=== PATIENT | female | born 1935 | race African-American/Black ===

== ENCOUNTER 2019-04-26 01:39 | Observation (INO) ==
[2019-04-26] MEDS ORDERED: ONDANSETRON 4 MG/2 ML VIAL IV PRN (02:02)
[2019-04-26 02:42] LABS: Alanine Aminotransferase 22 U/L (13-56); Albumin 3.3 G/DL (3.4-5.0); Alkaline Phosphatase 136 U/L (45-117); Aspartate Amino Transferase 17 U/L (0-37); Basophils % 0.2 % (0.0-0.8); Bilirubin,Total < 0.39 MG/DL (0.2-1.0); Blood Urea Nitrogen 22 MG/DL (7-18); Eosinophils % 0.1 % (0.00-10.9); Glucose 183 MG/DL (74-106); Hemoglobin 8.8 GM/DL (12.0-16.0); Immature Granulocytes % 0.5 %; Immature Granulocytes Absolute 0.05 #; Lymphocytes # 1.7 10*3/uL (1.4-4.0); Lymphocytes % 14.9 % (21.3-54.2); Mean Corpuscular HGB Conc 31.4 GM/DL (32-36); Mean Corpuscular Volume 90.6 FL (87-102); Mean Platelet Volume 9.8 FL (9.6-12.0); Neutrophils % 77.3 % (38.7-73.9); Osmolality,Calculated 297.6 MOS/KG (273-304); Platelet Count 245 T/CUMM (130-400); Red Blood Count 3.09 MC/CUMM (3.8-5.5); Red Cell Distribution Width 16.2 % (9.3-17.3); Total Protein 6.9 G/DL (6.4-8.3); White Blood Count 11.1 T/CUMM (4-12)
[2019-04-26] MEDS ORDERED: PANTOPRAZOLE INJ 80 MG in SODIUM CHLORIDE 0.9% 100 ML IV ONE (03:00)
[2019-04-26] MEDS: PANTOPRAZOLE INJ 200 MG in SODIUM CHLORIDE 0.9% 250 ML IV SCH (04:09)
[2019-04-26] MEDS: SODIUM CHLORIDE 0.9% 1,000 ML IV SCH (04:24)
[2019-04-26] MEDS ORDERED: METOPROLOL TARTRATE 50 MG TABLET PO SCH (07:00)
[2019-04-26 09:41] LABS: Basophils % 0.1 % (0.0-0.8); Eosinophils % 0.3 % (0.00-10.9); Hematocrit 27.8 VOL% (35.7-47.0); Hemoglobin 8.5 GM/DL (12.0-16.0); Immature Granulocytes % 0.5 %; Immature Granulocytes Absolute 0.05 #; Lymphocytes # 1.4 10*3/uL (1.4-4.0); Lymphocytes % 13.3 % (21.3-54.2); Mean Corpuscular HGB Conc 30.6 GM/DL (32-36); Mean Platelet Volume 9.6 FL (9.6-12.0); Monocytes % 7.6 % (1.7-12.7); Neutrophils % 78.2 % (38.7-73.9); Platelet Count 220 T/CUMM (130-400); Red Blood Count 2.99 MC/CUMM (3.8-5.5); White Blood Count 10.3 T/CUMM (4-12)
[2019-04-26] MEDS: PHENYTOIN ER 100 MG CAPSULE PO SCH ×2 (11:10→21:08)
[2019-04-26] MEDS: amLODIPine 10 MG TABLET PO SCH (11:10)
[2019-04-26] MEDS: METOPROLOL TARTRATE 50 MG TABLET PO SCH ×2 (11:11→21:08)
[2019-04-26] MEDS: traZODone 50 MG TABLET PO SCH ×2 (14:57→21:08)
[2019-04-26] MEDS ORDERED: traZODone 50 MG TABLET PO SCH (21:00)
[2019-04-26] MEDS ORDERED: HALOPERIDOL 5 MG/ML AMP IM STA (22:01)
[2019-04-27] MEDS ORDERED: HALOPERIDOL 5 MG/ML AMP IM STA (01:23)
[2019-04-27] MEDS: SODIUM CHLORIDE 0.9% 1,000 ML IV SCH (03:41)
[2019-04-27 04:33] LABS: Basophils % 0.1 % (0.0-0.8); Eosinophils # 0.2 10*3/uL (0.0-0.87); Eosinophils % 2.1 % (0.00-10.9); Hematocrit 24.9 VOL% (35.7-47.0); Hemoglobin 7.7 GM/DL (12.0-16.0); Immature Granulocytes % 0.2 %; Immature Granulocytes Absolute 0.02 #; Lymphocytes # 2.2 10*3/uL (1.4-4.0); Lymphocytes % 27.5 % (21.3-54.2); Mean Corpuscular HGB Conc 30.9 GM/DL (32-36); Mean Corpuscular Volume 91.9 FL (87-102); Mean Platelet Volume 10.5 FL (9.6-12.0); Monocytes % 6.7 % (1.7-12.7); Neutrophils % 63.4 % (38.7-73.9); Platelet Count 233 T/CUMM (130-400); Red Blood Count 2.71 MC/CUMM (3.8-5.5); Red Cell Distribution Width 16.5 % (9.3-17.3); White Blood Count 8.1 T/CUMM (4-12)
[2019-04-27] MEDS: PANTOPRAZOLE INJ 200 MG in SODIUM CHLORIDE 0.9% 250 ML IV SCH (05:18)
[2019-04-27] MEDS ORDERED: SODIUM CHLORIDE 0.9% 1,000 ML IV PRN (09:09)
[2019-04-27] MEDS: PHENYTOIN ER 100 MG CAPSULE PO SCH (09:11)
[2019-04-27] MEDS: traZODone 50 MG TABLET PO SCH ×2 (09:12→15:24)
[2019-04-27] MEDS: METOPROLOL TARTRATE 50 MG TABLET PO SCH (09:12)
[2019-04-27] MEDS: amLODIPine 10 MG TABLET PO SCH (09:12)
[2019-04-27 15:39] VITALS: BP 145/58
== END 2019-04-27 18:05 ==
LOC: SUATTDRO 01:39 → N.CC 01:39 → INTOOBSV 01:39 → N.5E 04-27 05:02
PROVIDERS: ADMIT Internal Medicine; ATTEND Family Medicine